=== PATIENT | female | born 1980 ===

== ENCOUNTER → 2018-02-03 | Emergency (ER) | payer OTHER ==
[~2018-02-03] VITALS: Ht 154.9 cm; Wt 82.6 kg
== END | disposition home or self-care (01) ==
LOC: ER 09:28
DX: K52.9 Noninfective gastroenteritis and colitis, unspecified (principal)

== ENCOUNTER 2018-12-08 13:37 | Outpatient (CLI) | payer OTHER | END 2018-12-08 13:57 | disposition home or self-care (01) | LOC: RAD 13:37 | DX: R07.89 Other chest pain (principal) ==

== ENCOUNTER 2021-06-26 08:00 | Outpatient (CLI) | payer OTHER | END 2021-06-26 08:30 | disposition home or self-care (01) | LOC: PPH VACUNA 08:00 | PROVIDERS: ATTEND Emergency Medicine Pediatric Emergency Medicine | DX: Z23 Encounter for immunization (principal) ==

== ENCOUNTER 2022-06-17 12:22 | Outpatient (CLI) | payer OTHER | END 2022-06-17 12:27 | disposition home or self-care (01) | LOC: PPH VACUNA 12:22 | PROVIDERS: ATTEND Emergency Medicine Pediatric Emergency Medicine | DX: Z23 Encounter for immunization (principal) ==

== ENCOUNTER 2022-06-17 12:27 | Outpatient (CLI) | payer OTHER | END 2022-06-17 12:32 | disposition home or self-care (01) | LOC: PPH VACUNA 12:27 | PROVIDERS: ATTEND Emergency Medicine Pediatric Emergency Medicine | DX: Z23 Encounter for immunization (principal) ==

== ENCOUNTER 2023-08-11 12:51 | Outpatient (CLI) | payer OTHER | END 2023-08-11 13:04 | disposition home or self-care (01) | LOC: MAMO-SONO 12:51 | DX: N64.4 Mastodynia (principal); N92.0 Excessive and frequent menstruation with regular cycle; Z12.31 Encounter for screening mammogram for malignant neoplasm of breast ==